=== PATIENT | male | born 1960 | race African-American/Black ===

== ENCOUNTER 2017-04-24 10:18 | Emergency (ER) | payer SELFPAY | END 2017-04-24 14:19 | disposition home or self-care (01) | LOC: D.ER 10:18 | DX: M25.532 Pain in left wrist (principal); R07.81 Pleurodynia; I10 Essential (primary) hypertension; F17.200 Nicotine dependence, unspecified, uncomplicated ==

== ENCOUNTER 2017-09-13 01:53 | Inpatient (IN) | payer OTHER ==
[~2017-09-13] VITALS: Ht 177.8 cm; Wt 64.1 kg
--- NOTE | ~2017-09-13 | OP ---
PATIENT NAME: PRATIMA GONGORA MEDICAL RECORD: [id number] LOCATION:[facility] ADMISSION DATE:09/13/17 SURGEON: SUHAIL FIELD MD DATE OF OPERATION: 09/16/2017 SURGEON: Suhail Field MD SUPERVISOR CUSTOMER SERVICES: ELIEZER Coon MD and TOMMY Perez OPERATION PERFORMED: Right video-assisted thoracoscopic surgery with apical bullae resection, mechanical pleurodesis; bronchoscopy. PREOPERATIVE DIAGNOSIS: Spontaneous right pneumothorax, bullous emphysema, and large apical bullae. POSTOPERATIVE DIAGNOSES: Spontaneous right pneumothorax, bullous emphysema, and large apical bullae. ANESTHESIA: Double lumen general endotracheal anesthesia. ESTIMATED BLOOD LOSS: 10 cc. COMPLICATIONS: None. SPECIMENS: Apical bullae. CONDITION: Stable. DISPOSITION: ICU. OPERATIVE FINDINGS: 1. No significant intrapleural adhesions. 2. Large collection of apical bullae with reasonable appearing lung tissue and no other visible blebs. 3. Good stapling and good reexpansion of the lung. INDICATION: Spontaneous pneumothorax without resolution with a chest tube. DESCRIPTION OF PROCEDURE: The patient was brought to the operating suite. Double lumen general anesthesia was obtained, the patient was prepped and draped, the right lung had been deflated after a double lumen tube was placed and before the patient's position, the chest tube was removed. The old chest tube site was later freshened and closed, incision was made in the tip of the scapula. Camera was inserted. Visualization was performed, posterior working port was made. An anterior working port was made. Apical blebs were grasped stapled without apparent complication. The entire chest was inspected using electrocautery inside each rib for about the second rib inferiorly, it was scored to allow mechanical pleurodesis. The lung was reinflated after chest tubes were placed through separate stab wounds apically and posteriorly and then sutured in place, the wounds were closed muscle layers subcutaneous and subcuticular. Marcaine was placed as intercostal block as well as in the muscles by the incision and then the patient was weaned and extubated stable to ICU. TRANSINT:[id number] Voice Confirmation ID: [id number] DOCUMENT ID: [id number] OPERATIVE REPORT [id number] PRATIMA GONGORA SUHAIL FIELD MD at 0951 CC: EZEKIEL HOU MD [id number] DICTATION DATE: 09/16/17 1141 PERSONAL ASSISTANT: 09/16/17 1231 ADM IN [place] [id number] [place] [id number]
[2017-09-13 02:26] LABS: BASOPHILS 0.2 % (0-2); EOSINOPHILS 0.5 % (0-7); HEMATOCRIT 39.8 % (42.0-54.0); HEMOGLOBIN 13.8 g/dL (13.5-17.5); MCH 34.7 pg (26.0-34.0); MCHC 34.7 g/dL (31.0-37.0); MONOCYTES 6.3 % (2-11); PLATELET COUNT 216 10x3/uL (130-400); RBC 3.98 10x6/uL (4.20-6.10); RDW 12.5 % (11.5-14.5); WBC 6.6 10x3/uL (4.8-10.8)
[2017-09-13 02:53] LABS: ALBUMIN 3.3 g/dL (3.4-5.0); ALKALINE PHOSPHATASE 195 U/L (46-116); ALT (SGPT) 121 U/L (10-68); CALCIUM 8.3 mg/dL (8.5-10.1); CARBON DIOXIDE 20.7 mmol/L (21.0-32.0); CHLORIDE - SERUM 101 mmol/L (98-107); CREATININE - SERUM 1.1 mg/dL (0.6-1.3); POTASSIUM - SERUM 3.9 mmol/L (3.5-5.1); PROTEIN - SERUM 7.9 g/dL (6.4-8.2); SODIUM 136 mmol/L (136-145); UREA NITROGEN 20 mg/dL (7-18); eGFR NON AFRICAN AMERICAN 73 mL/min (90-120)
[2017-09-13 02:55] LABS: CKMB 0.9 U/L (0.0-3.6); CREATINE KINASE 76 UL (21-232); LIPASE 185 U/L (73-393); MAGNESIUM - SERUM 1.7 mg/dL (1.8-2.4); PRO BNP 112 pg/mL (0-125)
[2017-09-13 02:58] LABS: CALC OSMOLALITY 279 mosm/kg (275-300); GLUCOSE 197 mg/dL (74-106); TROPONIN-I < 0.017 ng/mL (0.000-0.060)
[2017-09-13] MEDS ORDERED: NORVASC5 MG PO (04:52)
[2017-09-13 05:29] VITALS: BP 142/90; BMI 20.1
[2017-09-13 08:38] VITALS: BP 147/106
[2017-09-13 12:39] VITALS: BP 142/94
[2017-09-13 16:37] VITALS: BP 141/90
[2017-09-13 21:29] VITALS: BP 138/90
[2017-09-14 00:44] VITALS: BP 148/84
[2017-09-14 04:00] VITALS: BP 147/94
[2017-09-14 08:39] VITALS: BP 85/51
[2017-09-14 13:12] VITALS: BP 140/86
[2017-09-14 16:30] VITALS: BP 126/82
[2017-09-14 22:21] VITALS: BP 130/88
[2017-09-15 01:10] VITALS: BP 138/78
[2017-09-15 04:24] LABS: BASOPHILS 0 % (0-2); EOSINOPHILS 0.9 % (0-7); HEMOGLOBIN 11.7 g/dL (13.5-17.5); LYMPHOCYTES 37.6 % (15-50); MCH 34.3 pg (26.0-34.0); MCHC 33.4 g/dL (31.0-37.0); MCV 102.6 fL (80.0-100.0); MEAN PLATELET VOLUME 11.9 fL (7.4-10.4); MONOCYTES 7.7 % (2-11); NEUTROPHILS 53.8 % (40-80); RBC 3.41 10x6/uL (4.20-6.10); RDW 13.1 % (11.5-14.5); WBC 3.4 10x3/uL (4.8-10.8)
[2017-09-15 04:40] LABS: CALC OSMOLALITY 277 mosm/kg (275-300); CALCIUM 8.4 mg/dL (8.5-10.1); CARBON DIOXIDE 24.5 mmol/L (21.0-32.0); CHLORIDE - SERUM 107 mmol/L (98-107); CREATININE - SERUM 0.9 mg/dL (0.6-1.3); MAGNESIUM - SERUM 1.7 mg/dL (1.8-2.4); SODIUM 139 mmol/L (136-145); UREA NITROGEN 14 mg/dL (7-18); eGFR NON AFRICAN AMERICAN > 90 mL/min (90-120)
[2017-09-15 04:42] LABS: PLATELET COUNT 140 10x3/uL (130-400)
[2017-09-15 04:49] LABS: GLUCOSE 86 mg/dL (74-106)
[2017-09-15 05:03] VITALS: BP 154/74
[2017-09-15 07:52] VITALS: BP 140/88
[2017-09-15 12:20] VITALS: BP 127/87
[2017-09-15 15:54] VITALS: BP 120/87
[2017-09-15 15:58] LABS: HEMATOCRIT 35.5 % (42.0-54.0); HEMOGLOBIN 11.9 g/dL (13.5-17.5); MCH 34.3 pg (26.0-34.0); MCHC 33.5 g/dL (31.0-37.0); MCV 102.3 fL (80.0-100.0); MEAN PLATELET VOLUME 11.6 fL (7.4-10.4); RBC 3.47 10x6/uL (4.20-6.10); WBC 3.6 10x3/uL (4.8-10.8)
[2017-09-15 16:11] LABS: APTT 29.3 SECONDS (22.8-39.4); INR 1.03 (0.85-1.17); PROTIME 13.1 SECONDS (11.6-15.0)
[2017-09-15 17:04] LABS: ALBUMIN 2.6 g/dL (3.4-5.0); ANION GAP 16.5 mmol/L (8-16); BILIRUBIN - TOTAL 0.4 mg/dL (0.2-1.3); CALCIUM 8.6 mg/dL (8.5-10.1); CARBON DIOXIDE 22.4 mmol/L (21.0-32.0); CREATININE - SERUM 1.1 mg/dL (0.6-1.3); POTASSIUM - SERUM 3.9 mmol/L (3.5-5.1); PROTEIN - SERUM 6.3 g/dL (6.4-8.2)
[2017-09-15 20:31] VITALS: BP 144/94
[2017-09-16] VITALS (23 sets, daily range): BP systolic 99–1265; BP diastolic 53–99; Ht 177.8 cm; Wt 64.1 kg
[2017-09-16 14:37] LABS: APPEARANCE HAZY (CLEAR); COLOR YELLOW (YELLOW); GLUCOSE NEGATIVE (NEGATIVE); KETONE SMALL mg/dL (NEGATIVE); NITRITE NEGATIVE (NEGATIVE); PROTEIN NEGATIVE (NEGATIVE); SPECIFIC GRAVITY 1.015 (1.005-1.020)
[2017-09-16 14:38] LABS: BILIRUBIN NEGATIVE (NEGATIVE); UROBILINOGEN NORMAL (NORMAL)
[2017-09-16 14:40] LABS: RED CELLS - URINE 0-5 /hpf (0-5); WHITE CELLS - URINE 0-5 /hpf (0-5)
[2017-09-16 14:41] LABS: BACTERIA FEW /hpf (NONE SEEN); EPITHELIAL CELLS OCC /hpf (0-5)
[2017-09-17] VITALS (24 sets, daily range): BP systolic 110–158; BP diastolic 69–100
[2017-09-17 05:32] LABS: HEMOGLOBIN 11.1 g/dL (13.5-17.5); MCH 34.2 pg (26.0-34.0); MCHC 33.6 g/dL (31.0-37.0); MCV 101.5 fL (80.0-100.0); MEAN PLATELET VOLUME 11.4 fL (7.4-10.4); RBC 3.25 10x6/uL (4.20-6.10); RDW 12.8 % (11.5-14.5)
[2017-09-17 05:38] LABS: WBC 5.1 10x3/uL (4.8-10.8)
[2017-09-17 05:51] LABS: ALBUMIN 2.5 g/dL (3.4-5.0); ALKALINE PHOSPHATASE 83 U/L (46-116); BILIRUBIN - TOTAL 0.76 mg/dL (0.2-1.3); CALCIUM 8.3 mg/dL (8.5-10.1); CARBON DIOXIDE 25.5 mmol/L (21.0-32.0); CHLORIDE - SERUM 101 mmol/L (98-107); GLUCOSE 94 mg/dL (74-106); POTASSIUM - SERUM 3.9 mmol/L (3.5-5.1); PROTEIN - SERUM 6.6 g/dL (6.4-8.2); SODIUM 136 mmol/L (136-145); eGFR NON AFRICAN AMERICAN 81 mL/min (90-120)
[2017-09-17 05:52] LABS: ALT (SGPT) 65 U/L (10-68); CALC OSMOLALITY 269 mosm/kg (275-300); UREA NITROGEN 7 mg/dL (7-18)
[2017-09-18] VITALS (25 sets, daily range): BP systolic 116–150; BP diastolic 72–99
[2017-09-18 04:32] LABS: HEMATOCRIT 31.3 % (42.0-54.0); HEMOGLOBIN 10.6 g/dL (13.5-17.5); MCH 34.4 pg (26.0-34.0); MCHC 33.9 g/dL (31.0-37.0); MCV 101.6 fL (80.0-100.0); MEAN PLATELET VOLUME 10.9 fL (7.4-10.4); RBC 3.08 10x6/uL (4.20-6.10); RDW 12.8 % (11.5-14.5)
[2017-09-18 04:33] LABS: WBC 3.8 10x3/uL (4.8-10.8)
[2017-09-18 04:48] LABS: ALBUMIN 2.3 g/dL (3.4-5.0); ALKALINE PHOSPHATASE 85 U/L (46-116); ALT (SGPT) 52 U/L (10-68); BILIRUBIN - TOTAL 0.48 mg/dL (0.2-1.3); CALC OSMOLALITY 274 mosm/kg (275-300); CALCIUM 8.5 mg/dL (8.5-10.1); CARBON DIOXIDE 26.7 mmol/L (21.0-32.0); CHLORIDE - SERUM 104 mmol/L (98-107); CREATININE - SERUM 0.8 mg/dL (0.6-1.3); GLUCOSE 89 mg/dL (74-106); POTASSIUM - SERUM 3.5 mmol/L (3.5-5.1); PROTEIN - SERUM 6.3 g/dL (6.4-8.2); SODIUM 140 mmol/L (136-145); eGFR NON AFRICAN AMERICAN > 90 mL/min (90-120)
[2017-09-18 04:50] LABS: UREA NITROGEN 5 mg/dL (7-18)
[2017-09-19] VITALS (30 sets, daily range): BP systolic 122–164; BP diastolic 78–111
[2017-09-19] MEDS ORDERED: HYDROCODON-ACE1 EAC7 PO (10:43)
[2017-09-20] VITALS (9 sets, daily range): BP systolic 126–151; BP diastolic 81–100
== END 2017-09-20 11:10 | disposition home or self-care (01) | DRG 165 ==
LOC: D.ER 01:53 → D.MS 03:52 → D.CVICU 03:52
PROVIDERS: Family Medicine; Surgery; Thoracic Surgery (Cardiothoracic Vascular Surgery)
PROC: 0W9930Z Drainage of Right Pleural Cavity with Drainage Device, Percutaneous Approach (ICD-10-PCS; principal; 2017-09-13)
PROC: 0BBK4ZZ Excision of Right Lung, Percutaneous Endoscopic Approach (ICD-10-PCS; 2017-09-16)
PROC: 0B5N4ZZ Destruction of Right Pleura, Percutaneous Endoscopic Approach (ICD-10-PCS; 2017-09-16 07:30)
DX: J93.9 Pneumothorax, unspecified (principal); J43.9 Emphysema, unspecified; I10 Essential (primary) hypertension; J95.812 Postprocedural air leak; K21.9 Gastro-esophageal reflux disease without esophagitis; Z72.0 Tobacco use; Y83.8 Other surgical procedures as the cause of abnormal reaction of the patient, or of later complication, without mention of misadventure at the time of the procedure

== ENCOUNTER → 2017-09-24 10:14 | Outpatient (CLI) | payer OTHER ==
[~2017-09-24 10:14] MED LIST: HYDROCODON-ACE1 EAC7 PO; NORVASC5 MG PO
== END | disposition home or self-care (01) ==
LOC: D.RAD 10:14
DX: J90 Pleural effusion, not elsewhere classified (principal)

== ENCOUNTER → 2017-10-20 09:00 | Outpatient (CLI) | payer OTHER | END | disposition home or self-care (01) | LOC: D.RAD 09:00 | DX: J90 Pleural effusion, not elsewhere classified (principal) ==

== ENCOUNTER 2018-11-17 21:34 | Emergency (ER) | payer OTHER ==
[2018-11-17 21:44] VITALS: BMI 20.1
[2018-11-17] MEDS ORDERED: TYLENOL W/CODEI1 TAB (21:45)
[2018-11-17] MEDS ORDERED: NORVASC10 MG PO (22:29)
[2018-11-17 23:43] VITALS: BP 179/104
== END 2018-11-17 23:44 | disposition home or self-care (01) ==
LOC: D.ER 21:34
DX: K91.840 Postprocedural hemorrhage of a digestive system organ or structure following a digestive system procedure (principal)